=== PATIENT | male | born 1945 | race Caucasian/White ===

== ENCOUNTER 2017-11-02 15:39 | Observation (INO) | payer OTHER, MEDICARE ==
[~2017-11-02] VITALS: Ht 167.6 cm; Wt 85.0 kg
[2017-11-02 15:50] VITALS: BP 171/94; PULSE 93; RESP 18; TEMP 98; O2SAT 95
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
[2017-11-02 18:39] LABS: AUTOMATED NEUTROPHIL # 7.2 TH/MM3 (1.8-7.7); BASOPHIL % 0.3 % (0.0-2.0); EOSINOPHIL # 0.2 TH/MM3 (0-0.4); EOSINOPHIL % 2.2 % (0.0-4.0); HEMATOCRIT 41.5 % (39.0-51.0); LYMPH % 18.6 % (9.0-44.0); MEAN CELL VOLUME 85.6 FL (80.0-100.0); MEAN CORPUSCULAR HEMOGLOBIN 28.8 PG (27.0-34.0); MEAN CORPUSCULAR HGB CONC 33.7 % (32.0-36.0); MEAN PLATELET VOLUME 9.9 FL (7.0-11.0); MONO % 10.6 % (0.0-8.0); MONOCYTE # 1.1 TH/MM3 (0-0.9); NEUT % 68.3 % (16.0-70.0); PLATELET COUNT 245 TH/MM3 (150-450); RED BLOOD COUNT 4.85 MIL/MM3 (4.50-5.90); WHITE BLOOD COUNT 10.5 TH/MM3 (4.0-11.0)
[2017-11-02 18:51] LABS: PROTHROMBIN TIME - PATIENT 9.7 SEC (9.8-11.6)
[2017-11-02 18:59] LABS: ALBUMIN 3.8 GM/DL (3.4-5.0); AST (GOT) 29 U/L (15-37); BICARBONATE 26.3 MEQ/L (21.0-32.0); BLOOD UREA NITROGEN 25 MG/DL (7-18); CALCIUM 8.7 MG/DL (8.5-10.1); CHLORIDE 105 MEQ/L (98-107); CREATININE 2.02 MG/DL (0.60-1.30); GLOMERULAR FILTRATION RATE 33 ML/MIN (>89); GLUCOSE,RANDOM 88 MG/DL (74-106); MAGNESIUM 2.2 MG/DL (1.5-2.5); SODIUM (NA) 141 MEQ/L (136-145)
[2017-11-02 19:00] LABS: ALT (GPT) 42 U/L (12-78)
[2017-11-02 19:03] LABS: ALKALINE PHOSPHATASE 78 U/L (45-117); TOTAL BILIRUBIN ADULT 0.2 MG/DL (0.2-1.0); TOTAL PROTEIN 7.7 GM/DL (6.4-8.2); TROPONIN I LESS THAN 0.02 NG/ML (0.02-0.05)
[2017-11-02] MEDS ORDERED: METO50TA PO (19:07)
[2017-11-02] MEDS ORDERED: SODIUM CHLORID 0.9% 500 ML INJ 500 ML IV ONE (20:00)
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
[2017-11-02 20:42] VITALS: BP 194/114; PULSE 100; RESP 16; O2SAT 94
[2017-11-02] MEDS ORDERED: NALOXONE HCL 0.4 MG/ML AMP IV PUSH PRN (20:45)
[2017-11-02] MEDS ORDERED: SODIUM CHLORIDE 0.9% FLUSH 10 ML FLUSH IV FLUSH PRN (20:45)
[2017-11-02] MEDS ORDERED: MORPHINE SULFATE 2 MG/ML INJ IV PUSH ONE (20:45)
[2017-11-02] MEDS ORDERED: METOPROLOL TARTRATE 50 MG TAB PO SCH (21:00)
[2017-11-02] MEDS: SODIUM CHLORIDE 0.9% FLUSH 10 ML FLUSH IV FLUSH SCH (21:00)
[2017-11-02 21:01] VITALS: BP 177/118; PULSE 103; RESP 18; O2SAT 96
[2017-11-02] MEDS ORDERED: HYDR-3801 PO (21:09)
[2017-11-02] MEDS: hydrALAZINE HCL 25 MG TAB PO SCH (21:14)
[2017-11-02 21:42] VITALS: BP 164/95; PULSE 126; RESP 18; TEMP 98.7; O2SAT 98
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
[2017-11-02] MEDS ORDERED: MORPHINE SULFATE 2 MG/ML INJ IV PUSH PRN (22:15)
[2017-11-02] MEDS: ACETAMINOPHEN/HYDROcodone 325 MG/5 MG TAB PO PRN (22:34)
[2017-11-02] MEDS: SODIUM CHLOR 0.9% 1000 ML INJ 1,000 ML IV SCH (22:39)
[2017-11-02 23:16] VITALS: BP 151/99; PULSE 73; RESP 14; TEMP 98.2; O2SAT 93
[2017-11-03] VITALS (10 sets, daily range): BP systolic 149–209; BP diastolic 91–121; PULSE 73–90; RESP 16–18; TEMP 98–98.7; O2SAT 93–98
[2017-11-03 00:44] LABS: TROPONIN I LESS THAN 0.02 NG/ML (0.02-0.05)
[2017-11-03 05:33] LABS: BICARBONATE 26.7 MEQ/L (21.0-32.0); CALCIUM 8.3 MG/DL (8.5-10.1); CREATININE 1.68 MG/DL (0.60-1.30)
[2017-11-03 05:36] LABS: TROPONIN I LESS THAN 0.02 NG/ML (0.02-0.05)
[2017-11-03] MEDS: hydrALAZINE HCL 25 MG TAB PO SCH ×2 (06:12→17:54)
[2017-11-03] MEDS: ACETAMINOPHEN/HYDROcodone 325 MG/5 MG TAB PO PRN ×3 (06:12→19:57)
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
[2017-11-03] MEDS: METOPROLOL TARTRATE 50 MG TAB PO SCH ×2 (10:45→19:57)
[2017-11-03] MEDS: SODIUM CHLORIDE 0.9% FLUSH 10 ML FLUSH IV FLUSH SCH ×2 (10:46→19:59)
[2017-11-03] MEDS: SODIUM CHLOR 0.9% 1000 ML INJ 1,000 ML IV SCH (13:34)
[2017-11-03] MEDS ORDERED: ENALAPRILAT 1.25 MG/ML VIAL IV PUSH PRN (15:15)
[2017-11-03] MEDS ORDERED: amLODIPine BESYLATE 5 MG TAB PO ONE (15:15)
[2017-11-03] MEDS ORDERED: hydrALAZINE HCL 25 MG TAB PO ONE (15:15)
--- NOTE | 2017-11-03 23:55 | EKG ---
Date Performed: 11/03/2017 Time Performed: 05:58:08 PTAGE: 72 years EKG: Sinus rhythm MARKED LEFT AXIS DEVIATION ABNORMAL ECG Since the prior tracing, there has been no significant rose e DOCTOR: Erin Marinelli Interpretating Date/Time 11/03/2017 23:54:24
[2017-11-04 00:06] VITALS: BP 158/101; PULSE 81; RESP 18; TEMP 97.8; O2SAT 92
--- NOTE | 2017-11-04 00:34 | EKG ---
Date Performed: 11/02/2017 Time Performed: 18:29:05 PTAGE: 72 years EKG: Sinus rhythm MARKED LEFT AXIS DEVIATION ABNORMAL ECG NO PREVIOUS TRACING DOCTOR: Erin Marinelli Interpretating Date/Time 11/04/2017 00:33:34
[2017-11-04] MEDS: ACETAMINOPHEN/HYDROcodone 325 MG/5 MG TAB PO PRN ×2 (03:20→07:50)
[2017-11-04 03:38] VITALS: BP 136/84; PULSE 82; RESP 18; TEMP 98.3; O2SAT 94
[2017-11-04 03:54] VITALS: PULSE 90
[2017-11-04 07:28] VITALS: BP 146/86; PULSE 82; RESP 16; TEMP 98.3; O2SAT 93
[2017-11-04] MEDS: SODIUM CHLORIDE 0.9% FLUSH 10 ML FLUSH IV FLUSH SCH (07:49)
[2017-11-04] MEDS ORDERED: HYDR-3516 PO (07:50)
[2017-11-04] MEDS: METOPROLOL TARTRATE 50 MG TAB PO SCH (07:50)
[2017-11-04] MEDS: hydrALAZINE HCL 25 MG TAB PO SCH (07:50)
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
[2017-11-04] MEDS ORDERED: AMLO5 PO (08:00)
[2017-11-04] MEDS ORDERED: HYDR-3799 PO (08:00)
[2017-11-04] MEDS ORDERED: CHOL1000 PO (08:00)
[2017-11-04 08:15] VITALS: PULSE 82
--- NOTE | 2017-11-04 08:49 | ECHRPT ---
Indication: POSS CARDIAC CONTUSION CONCLUSIONS Normal left ventricular size. Mild concentric left ventricular hypertrophy. The left ventricular systolic function is normal with an estimated ejection fraction of 55%. The left atrial size is mildly dilated. The right atrial size is mildly dilated. Trace mitral valve regurgitation. There is trace tricuspid valve regurgitation. The estimated pulmonary arterial pressure is 39 mmHg. Trivial pulmonary valve regurgitation. BP: 149 / 91 HR: 84 Rhythm: Sinus MEASUREMENTS (Male / Female) Normal Values Technical Quality:Fair 2D ECHO LV Diastolic Diameter PLAX 3.0 cm 4.2 - 5.9 / 3.9 - 5.3 cm LV Systolic Diameter PLAX 2.9 cm IVS Diastolic Thickness 1.4 cm 0.6 - 1.0 / 0.6 - 0.9 cm LVPW Diastolic Thickness 1.4 cm 0.6 - 1.0 / 0.6 - 0.9 cm LV Relative Wall Thickness 0.9 RV Internal Dim ED PLAX 2.4 cm LVOT Diameter 1.8 cm Aortic Root Diameter 2.9 cm LA Systolic Diameter LX 1.8 cm 3.0 - 4.0 / 2.7 - 3.8 cm M-MODE AV Cusp Separation MM 2.0 cm DOPPLER AV Peak Velocity 123.0 cm/s AV Peak Gradient 6.1 mmHg AV Mean Gradient 3.0 mmHg AV Velocity Time Integral 19.5 cm LVOT Peak Velocity 89.5 cm/s LVOT Peak Gradient 3.2 mmHg LVOT Velocity Time Integral 15.7 cm AV Area Cont Eq vti 2.0 cm AV Area Cont Eq pk 1.9 cm Mitral E Point Velocity 58.7 cm/s Mitral A Point Velocity 96.3 cm/s Mitral E to A Ratio 0.6 LV E' Lateral Velocity 6.1 cm/s Mitral E to LV E' Lateral Ratio 9.6 LV E' Septal Velocity 3.7 cm/s Mitral E to LV E' Septal Ratio 15.9 TR Peak Velocity 271.0 cm/s TR Peak Gradient 29.4 mmHg Right Atrial Pressure 10.0 mmHg Pulmonary Artery Systolic Pressu 39.4 mmHg Right Ventricular Systolic Press 39.4 mmHg PV Peak Velocity 66.9 cm/s PV Peak Gradient 1.8 mmHg FINDINGS LEFT VENTRICLE Normal left ventricular size. Mild concentric left ventricular hypertrophy. The left ventricular systolic function is normal with an estimated ejection fraction of 55%. RIGHT VENTRICLE Normal right ventricular size and systolic function. LEFT ATRIUM The left atrial size is mildly dilated. RIGHT ATRIUM The right atrial size is mildly dilated. ATRIAL SEPTUM The interatrial septum not well visualized. AORTA The aortic root and proximal ascending aorta are normal in size on limited imaging. MITRAL VALVE Trace mitral valve regurgitation. AORTIC VALVE Trileaflet aortic valve. No aortic valve stenosis or regurgitation. TRICUSPID VALVE There is trace tricuspid valve regurgitation. The estimated pulmonary arterial pressure is 39.4 mmHg. PULMONARY VALVE Trivial pulmonary valve regurgitation. VESSELS The inferior vena cava was not well visualized. PERICARDIUM No pericardial effusion. Erin Marinelli MD, FACC (Electronically Signed) Final Date:04 November 2017 08:48
[2017-11-04] MEDS ORDERED: CHOLECALCIFEROL (VIT D3) 1000 UNIT TAB PO SCH (09:00)
[2017-11-04] MEDS ORDERED: amLODIPine BESYLATE 5 MG TAB PO SCH (09:00)
== END 2017-11-04 12:20 | disposition home or self-care (01) ==
LOC: NEPE 15:39 → NEDA 20:46 → NEPHCDU 22:31
PROVIDERS: ADMIT Internal Medicine; ATTEND Internal Medicine
DX: S22.20XA Unspecified fracture of sternum, initial encounter for closed fracture (principal); I12.9 Hypertensive chronic kidney disease with stage 1 through stage 4 chronic kidney disease, or unspecified chronic kidney disease; N18.9 Chronic kidney disease, unspecified; J98.11 Atelectasis; E55.9 Vitamin D deficiency, unspecified; N17.9 Acute kidney failure, unspecified; R94.31 Abnormal electrocardiogram [ECG] [EKG]; Z79.899 Other long term (current) drug therapy; V43.62XA Car passenger injured in collision with other type car in traffic accident, initial encounter; Y92.410 Unspecified street and highway as the place of occurrence of the external cause
CPT/HCPCS: 71046; 71250; 80048; 80053; 82306; 82550; 82552; 83735; 84484; 85025; 85610; 85730; 93005; 93306; 96361; 96374; 96375; 96376; 97161; 99285; G0378; G8987; G8988; J2270; J7030; J7040